=== PATIENT | female | born 2000 | race Caucasian/White ===

== ENCOUNTER → 2019-06-03 17:32 | Outpatient (CLI) | payer MEDICAID, SELFPAY ==
[2019-06-03 19:55] LABS: M R Staph aureus DNA By PCR Negative (Negative); Probe Check PASS; Specimen Processing Control PASS; Staph aureus DNA By PCR POSITIVE (Negative)
== END ==
PROVIDERS: Referring Provider Podiatrist; Visit Provider Podiatrist
DX: L60.0 Ingrowing nail (principal)
CPT/HCPCS: 87070; 87075; 87076; 87077; 87186; 87205; 87640

== ENCOUNTER → 2021-03-30 10:55 | Outpatient (CLI) | payer MEDICARE, SELFPAY | PROVIDERS: Visit Provider Family Medicine | DX: Z23 Encounter for immunization (principal) ==